=== PATIENT | male | born 1940 | race Asian ===

== ENCOUNTER → 2024-04-19 | Outpatient (CLI) | payer MEDICARE, MEDICAID, SELFPAY | END | disposition home or self-care (01) | PROVIDERS: PCP Physician Assistant; Referring Provider Urology; Visit Provider Urology | DX: N40.1 Benign prostatic hyperplasia with lower urinary tract symptoms (principal) | CPT/HCPCS: 36415; 84153 ==

== ENCOUNTER → 2024-04-19 | Outpatient (BNVA) | payer MEDICARE, MEDICAID, SELFPAY | END | disposition home or self-care (01) | PROVIDERS: PCP Physician Assistant; Referring Provider Physician Assistant; Visit Provider Urology | DX: N40.1 Benign prostatic hyperplasia with lower urinary tract symptoms (principal); N13.8 Other obstructive and reflux uropathy; E10.9 Type 1 diabetes mellitus without complications; I10 Essential (primary) hypertension; I25.10 Atherosclerotic heart disease of native coronary artery without angina pectoris; F17.210 Nicotine dependence, cigarettes, uncomplicated | CPT/HCPCS: 81003; 99212; G0463 ==

== ENCOUNTER → 2024-06-29 | Outpatient (BNVA) | payer MEDICARE, MEDICAID, SELFPAY | END | disposition home or self-care (01) | PROVIDERS: PCP Physician Assistant; Referring Provider Physician Assistant; Visit Provider Urology | DX: N40.1 Benign prostatic hyperplasia with lower urinary tract symptoms (principal); N13.8 Other obstructive and reflux uropathy; E10.9 Type 1 diabetes mellitus without complications | CPT/HCPCS: 76872 ==

== ENCOUNTER 2025-03-08 09:59 | Emergency (ER) | payer MEDICARE, MEDICAID, SELFPAY ==
[2025-03-08 10:11] VITALS: BP 129/69; PULSE 73; RESP 19; TEMP 36.6; O2SAT 97; BMI 22.6
--- NOTE | 2025-03-08 10:23 | PD.EDRME ---
Rapid Medical Screening Exam RME Arrival date/time: 03/08/25 09:59 84-year-old male presents to the emergency department today for complaint of rectal pain. Chief Complaint: General Adult/Misc Complain Vital signs: Vital Signs Temperature 98 F 03/08/25 10:11 Pulse Rate 73 03/08/25 10:11 Respiratory Rate 19 03/08/25 10:11 Blood Pressure 129/69 03/08/25 10:11 Pulse Oximetry (%) 97 03/08/25 10:11 Oxygen Delivery Method Room Air 03/08/25 10:11 Vital signs reviewed by provider: Yes Exam: On exam patient well-appearing does not appear ill or toxic Clinical Impression: Lab work ordered patient be seen in main ER for further evaluation
[2025-03-08 10:54] LABS: Basophils # (Auto) 0.1 Thou/mm3 (0.0-0.2); Basophils % (Auto) 1 % (0-2.5); Eosinophils # (Auto) 0.9 Thou/mm3 (0.0-0.5); Eosinophils % (Auto) 6 % (0-10); Hematocrit 43.1 % (41.0-53.0); Hemoglobin 14.3 g/dL (13.5-16.0); Immature Granulocytes Auto 0.03 Thou/mm3 (0.00-0.00); Lymphocytes # (Auto) 1.8 Thou/mm3 (1.0-4.8); Lymphocytes % (Auto) 13 % (10-50); Mean Corpuscular HGB Conc 33.2 g/dl (31.0-37.0); Mean Corpuscular Hemoglobin 25.0 pg (25.0-35.0); Mean Corpuscular Volume 75 fL (80-100); Monocytes # (Auto) 0.9 Thou/mm3 (0.0-0.8); Monocytes % (Auto) 7 % (0-12); Neutrophils # (Auto) 9.8 Thou/mm3 (1.8-7.7); Neutrophils % (Auto) 73 % (37-80); Nucleated Red Blood Cell # 0.00 Thou/mm3 (0.00-0.00); Nucleated Red Blood Cell % 0 /100 WBC (0); Platelet Count 229 Thou/mm3 (140-440); RDW Standard Deviation 38.6 fL (35.1-43.9); Red Blood Count 5.73 Miln/mm3 (4.50-5.90); White Blood Count 13.4 Thou/mm3 (3.8-10.6)
[2025-03-08 11:12] LABS: Alanine Aminotransferase 16 U/L (10-49); Albumin, Serum 4.5 gm/dL (3.4-4.8); Albumin/Globulin Ratio 1.2 (1.2-2.2); Alkaline Phosphatase 100 U/L (46-116); Anion Gap 12 (7-16); Aspartate Amino Transferase 20 U/L (0-34); BUN/Creatinine Ratio 15 Ratio (12-20); Bilirubin,Total 0.5 mg/dL (0.3-1.2); Blood Urea Nitrogen 21 mg/dL (9-23); Calcium 9.7 mg/dL (8.3-10.6); Calcium (Corrected) 9.7 mg/dL (8.5-10.1); Carbon Dioxide 25.7 mMol/L (20.0-31.0); Chloride 101 mMol/L (98-107); Creatinine (Component) 1.4 mg/dL (0.6-1.3); Estimated Creatinine Clearance 33.6 mL/min (>60); Globulin 3.8 gm/dL (2.3-3.5); Glucose 185 mg/dL (74-106); Lipase 36 U/L (12-53); Osmolality,Calculated 285 (275-295); Potassium 4.0 mMol/L (3.4-5.1); Sodium 139 mMol/L (136-145); Total Protein 8.3 gm/dL (5.7-8.2); eGFR 49 See Note
--- NOTE | 2025-03-08 11:20 | XR_ITS ---
Examination: CT abdomen and pelvis without contrast. Coronal 3-D reconstructions. Sagittal 2-D reconstructions. Date and time of exam: March 08, 2025, 1144 hours INDICATIONS: Lower abdominal pain rectal pain today COMPARISON: September 26, 1999 and CTDI: vol (mGy): 4.85 DLP: (mGycm): 280 Technique: Axial images of the abdomen have been obtained, 3 mm slice thickness Intravenous contrast material has not been administered. Low dose protocols were performed. One or more of the following dose reduction techniques were used; automated exposure control, adjustment of the mA and/or KV according to patient size, use of iterative reconstruction technique. Findings: No focal liver or splenic lesions No gallstones No pancreatic or adrenal mass Mild renal scar formation Aortic calcification no aneurysmal dilatation No pericecal inflammatory change No diverticulitis Normal seminal vesicles Mild prostatomegaly Urinary bladder intact Severe osteopenia, advanced degenerative disc disease L3-L4 Significant rectal wall thickening IMPRESSION: Mild renal scar formation, no hydronephrosis or ureteral calculi No CT findings of bowel obstruction diverticulitis or appendicitis Severe osteopenia, advanced degenerative disc disease L3-L4 Significant rectal wall thickening, differential would include rectal tumor, recommend direct inspection
[2025-03-08 11:54] LABS: Collection Type, Urine Clean Catch
[2025-03-08 12:03] LABS: Bilirubin,Urine Negative (Negative); Blood,Urine Negative (Negative); Clarity,Urine Clear (Clear/Hazy); Color,Urine Yellow (Lt Yel-Yel); Culture Indicated,Urine Not Indicated; Glucose, Urine 4+ (Negative); Ketones,Urine 2+ (Negative); Leukocyte Esterase,Urine Negative (Negative); Nitrite,Urine Negative (Negative); PH,Urine 6.0 (5.0-7.0); Protein,Urine Trace (Neg - Trace); RBC,Urine 5 /hpf (0-3); Specific Gravity,Urine 1.037 (1.001-1.035); Squamous Epithelial Cell,Urine < 1 /hpf (0-5); Urobilinogen,Urine Negative mg/dL (0.0-1.0); WBC,Urine 1 /hpf (0-5)
--- NOTE | 2025-03-08 13:30 | PC.NURSE ---
Pt. here from home to room 9, pt.'s grand daughter is bedside and states pt. started having pain on 02/16/25, pt. states the pain got worse on Friday. Pt. states he has to much pain. Pt. laying on his side. No s/s of distress.
[2025-03-08 13:36] VITALS: BP 144/70; PULSE 61; RESP 18; O2SAT 98
[2025-03-08] MEDS: ONDANSETRON INJ 2 MG/ML INJ 2 ML 4 MG IVP (13:39)
[2025-03-08] MEDS: MORPHINE SULF INJ 4 MG/ML VIAL IVP (13:43)
[2025-03-08] MEDS: PIPER/TAZO 3.375 GM PREMIX 3.375 GM/50 ML BAG IV (13:44)
[2025-03-08] MEDS: SODIUM CHLORIDE 0.9% 1000 ML 1,000 ML 85 ML IV (13:45)
--- NOTE | 2025-03-08 14:13 | EDNOTE_ITS ---
ED General RME/HPI General Chief complaint: Skin/Abscess/Foreign Body Stated complaint: Rectal pain x 4d Time Seen by Provider: 03/08/25 11:11 Arrival date/time: 03/08/25 09:59 CC: Rectal pain HPI progressive increase in severity was noticed on 16 February, 20 days ago, now has become extremely painful and the patient is not able to sit on the right side of his buttocks. Patient denies fever chills no prior history of similar events did not recall scratching his rectum or any other rectal complications. Patient is awake alert in mild discomfort but not in any acute distress. Localized pain is a 6 on a 10 scale when at rest and when sitting on it is a 9 on a 10 scale. RME / HPI RME / HPI narrative: 03/08/25 09:59 84-year-old male presents to the emergency department today for complaint of rectal pain. Exam: On exam patient well-appearing does not appear ill or toxic Impression: Lab work ordered patient be seen in main ER for further evaluation Related Data Home Medications ?Medication ?Instructions ?Recorded ?Confirmed Benazepril Hcl * (LOTENSIN *) 10 mg PO QDAY #0 tabs 06/29/24 insulin glargine 100 unit/mL 10 unit subcut QAM #0 via ls 05/23/15 06/29/24 subcutaneous solution (Lantus U-100 Insulin) tamsulosin 0.4 mg capsule 0.4 mg PO QHS 09/07/2006/29 docusate sodium 100 mg capsule 100 mg PO QDAY PRN Dige stion 09/20/20 06/29/24 (Colace) insulin aspart U-100 100 unit/mL 20 unit subcut QDAY 0 09/20/20 06/29/24 (3 mL) subcutaneous pen (Novolog FlexPen U-100 Insulin aspart) metformin 1,000 mg tablet 1,000 mg PO QDAY 09/20/20 famotidine 20 mg tablet (Pepcid) 20 mg PO QDAY 2 06/29/24 umeclidinium 62.5 mcg-vilanterol 1 inh inhalation QDAY 07/27/21 06/29/24 25 mcg/actuation powdr for inhalation (Anoro Ellipta) atorvastatin 40 mg tablet 40 mg PO QHS 10/02/21 gabapentin 100 mg capsule 100 mg PO QHS 10/02/2106/29 levothyroxine 25 mcg capsule 25 mcg PO QDAY 10/02/21 0 06/29/24 Previous Rx's ?Medication ?Instructions ?Recorded sulfamethoxazole 800 1 tab PO BID 7 days #14 tabs 03/08/25 mg-trimethoprim 160 mg tablet (Bactrim DS) Allergies Allergy/AdvReac Type Severity Reaction Status Date / Time No Known Allergies Allergy Verified 03/08/25 10:05 Review of Systems Review of Systems Narrative Review of Systems: GEN: No fever, no chills, no weight loss EYES: No discharge, no visual changes, no pain HEENT: No ear pain, no congestion, no sore throat PULM: No shortness of breath, no cough, no congestion CV: No chest pain, no dyspnea on exertion, no palpitations GI: No nausea, no vomiting, no diarrhea, no pain, no constipation : No frequency, no urgency, no dysuria MUSC/SKEL: No joint pain, no back pain SKIN: No rash, + rectal pain PSYCH: No hallucinations, no depression HEME/LYMPH: No easy bleeding or bruising tendencies NEURO: No weakness, no headache Past Medical History Past Medical History CARDIAC: Negative Congestive Heart Failure RESPIRATORY: Negative Chronic Obstructive Pulmonary Disease (COPD) GENITOURINARY: Negative Renal Disease ENDOCRINE: Positive Diabetes Mellitus Type 1; Negative Diabetes Mellitus Type 2 OTHER HISTORY: Negative Autoimmune Disease Family History FAMILY HISTORY: Negative Family Cardiac Disorders, Family Cancer, Family Surgery or Family Anesthesia Reaction Social History SMOKING STATUS: Current every day smoker ED Exam Narrative Physical exam: [General: Thin but not emaciated, in mild discomfort but not in any acute distress Head normocephalic HEENT: Within acceptable limits Neck is supple nontender Chest equal chest rise nontender to palpation Respiratory: Clear to auscultation no wheezes crackles or rubs CV: Rate rhythm is regular no murmurs rubs or clicks Abdomen is distended secondary to body habitus soft nontender no masses positive bowel sounds all 4 quadrants Back: No CVA tenderness no spinous process tenderness from cervical spine thoracic and lumbar spine Skin: Rectum: Firm erythematous area with no opening or exudative material starting at the anus and progressing out through on the right side group home through the gluteal cleft. No tenderness on the right gluteal cheek externally. Or tenderness in the left gluteal cheek at all. Otherwise skin is intact no petechiae rash induration ulceration or crepitus Extremities: Moving all extremity against resistance cap refill less than 2 seconds neurosensory intact Neuro: Awake alert oriented x3 Glascow coma 15 no focal deficits] Course Course Course Narrative: Patient's clinical findings CT findings and laboratory results discussed with Dr Ferreira surgeon states the patient can be follow-up in outpatient basis and put on Bactrim or clindamycin. This was discussed with the patient was in agreement with this plan. Will discharge the patient home to follow-up outpatient basis. Quality Measures none Orders Category Date Time Status CT Screening NOW Care 03/08/25 15:28 Completed Saline [Insert IV] NOW Care 03/08/25 12:[address] abdomen pelvis wo con Stat Exams 03/08/25 11:[address] pelvis w con Stat Exams 03/08/25 15:28 Completed CBC Stat Lab 03/08/25 10:37 Completed Comprehensive Metabolic Panel Stat Lab 03/08/25 10:37 Completed Lipase Stat Lab 03/08/25 10:37 Completed UA, C/S IF [Urinalysis, C/S if Indicated] Stat Lab 03/08/25 11:40 Completed Morphine* Inj Med 03/08/25 13:24 Discontinued 4 mg IVP X1 ONE Ondansetron Inj [Zofran Inj] Med 03/08/25 13:26 Discontinued 4 mg IVP X1 ONE Piper/Tazo 3.375 gm Premix [Zosyn] Med 03/08/25 12:07 Discontinued 3.375 gm in 50 ml IV X1 Sodium Chloride 0.9% 1000 ml [Ns] 1,000 ml Med 03/08/25 13:27 Discontinued IV 85 mls/hr Trimethoprim/Sulfa 160/800 Ds [Bactrim Ds] Med 03/08/25 20:03 Discontinued 1 tab PO X1 ONE Vital Signs Vital signs: Vital Signs Temperature 98 F 03/08/25 10:11 Pulse Rate 73 03/08/25 10:11 Respiratory Rate 19 03/08/25 10:11 Blood Pressure 129/69 03/08/25 10:11 Pulse Oximetry (%) 97 03/08/25 10:11 Oxygen Delivery Method Room Air 03/08/25 10:11 Discharge Plan Plan Patient Disposition: HOME (Self Care) Patient condition on transfer: Stable Prescriptions/Referrals Prescriptions/Med Rec: New sulfamethoxazole-trimethoprim [Bactrim DS] 800-160 mg tablet 1 tab PO BID 7 Days Qty: 14 0RF No Action tamsulosin 0.4 mg capsule 0.4 mg PO QHS insulin aspart U-100 [Novolog FlexPen U-100 Insulin] 100 unit/mL (3 mL) insulin pen 20 unit subcut QDAY metformin 1,000 mg tablet 1,000 mg PO QDAY docusate sodium [Colace] 100 mg capsule 100 mg PO QDAY PRN (Reason: Digestion) atorvastatin 40 mg tablet 40 mg PO QHS gabapentin 100 mg capsule 100 mg PO QHS levothyroxine 25 mcg capsule 25 mcg PO QDAY Lantus U-100 Insulin 100 U/ML solution 10 unit Sub-Q QAM Qty: 0 Benazepril Hcl * (LOTENSIN *) 10 MG tablet 10 mg PO QDAY Qty: 0 famotidine [Pepcid] 20 mg Tablet 20 mg PO QDAY Anoro Ellipta 62.5-25 mcg/actuation Blister With Device 1 inh INHALATION QDAY Referrals: Edilberto Ferreira MD [Physician, General Surgery] - In 1 week Maisha Selby PA-C [Primary Care Provider, Family Practice] - In 1 week Problem List Clinical Impression: Abscess, perianal Patient/Caregiver Discharge Instructions Education Materials: ED ABSCESS Camelia-Anal Abx only Additional Instructions: Take the medications as prescribed ibuprofen and Tylenol for pain if there is any worsening of symptoms return to the emergency room meetly for further evaluation. Print Language: Fortunato Stand Alone Forms: Kalee Award Info., Work/School Release, Patient Portal Info Letter PA/SUPERVISOR [employer] Supervising Physician PA/SUPERVISOR [employer] Supervising Physician: Avni Arreaga ENP [facility] Clinical Information Provided by: patient Medical Records reviewed [facility] Meds/Rx considered, not ordered None Labs/Rad/Tests considered, not ordered None Chronic Illness/Social Conditions which may negatively complicate care or outcome(s)-explain: None or not applicable EKG EKG not done Labs Labs: interpreted by [place] Lab(s) Interpretation(s): CBC shows leukocytosis of 13.4 H&H is within acceptable limits, no thrombocytopenia CMP shows no significant electrolyte imbalances other than a glucose of 185. BUN of 21 and creatinine of 1.4. No transaminitis or T. bili elevation. Lipase 36. Urine shows a high specific gravity 4+ glucose 2+ ketones 5 RBCs no with signs of infection. Imaging Imaging interpretation: interpreted by me Imaging Interpretation(s): Noncontrast abdomen pelvis CT shows rectal wall thickening no definitive mass. CT shows a small 2.4 x 2.2 x 2.2 perianal abscess. There is no extension into the surrounding area. Medication Administration(s) none Medication Administration History Discontinued Medications Piperacillin/Tazobactam/Dextrose (Zosyn) 3.375 gm in 50 mls @ 100 mls/hr IV X1 ONE; Protocol Stop: 03/08/25 12:36 Last Infusion: 03/08/25 14:14 Dose: Infused Documented By: Admin: 03/08/25 13:44 Dose: 100 mls/hr Documented By: ED Sodium Chloride (Ns) 1,000 mls @ 85 mls/hr IV .[id number] CASANDRA Stop: 04/07/25 13:26 Last Infusion: 03/08/25 20:23 Dose: 0 mls/hr Documented By: Admin: 03/08/25 13:45 Dose: 85 mls/hr Documented By: ED Morphine Sulfate (Morphine Sulf Inj 4 Mg/Ml Vial) 4 mg IVP X1 ONE Stop: 03/08/25 13:25 Last Admin: 03/08/25 13:43 Dose: 4 mg Documented By: ED Ondansetron HCl (Ondansetron Inj 2 Mg/Ml Inj 2 Ml) 4 mg IVP X1 ONE; Protocol Stop: 03/08/25 13:27 Last Admin: 03/08/25 13:39 Dose: 4 mg Documented By: ED Trimethoprim/Sulfamethoxazole (Trimethoprim/Sulfa 160/800 Ds Tablet) 1 tab PO X1 ONE Stop: 03/08/25 20:04 Last Admin: 03/08/25 20:21 Dose: 1 tab Documented By: SF Diagnosis Differential Diagnosis ED Complaint MDM: Rectal abscess rectal mass proctitis thank you
--- NOTE | 2025-03-08 15:28 | XR_ITS ---
Examination: CT pelvis with intravenous contrast, 2-D sagittal reconstructions. 2-D coronal reconstructions. 3-D reconstructions. Date and time of exam: March 08, 2025, 1819 hours INDICATIONS: Rectal pain 4 days CTDI: vol (mGy): 5.01 DLP: (mGycm): 176 Technique: Multiple 1.25 mm axial sections of the 30 cc Isovue-300 have been obtained. 2-D sagittal and coronal reconstructions have been obtained. 3-D reconstructions have been obtained. Low dose protocols were performed. One or more of the following dose reduction techniques were used; automated exposure control, adjustment of the mA and/or KV according to patient size, use of iterative reconstruction technique. Findings: Perianal abscess, primarily right-sided, 24 x 22 x 23 mm Cellulitis in the buttock region bilaterally Rectal wall thickening axial image 102 No mass in the pelvis urinary bladder intact IMPRESSION: Right-sided perianal abscess 24 x 22 x 23 mm Proctitis
[2025-03-08 16:22] VITALS: BP 114/71; PULSE 60; RESP 14; TEMP 36.9; O2SAT 97
[2025-03-08 17:55] VITALS: BP 141/65; PULSE 60; RESP 16; TEMP 36.8; O2SAT 98
[2025-03-08] MEDS: TRIMETHOPRIM/SULFA 160/800 DS TABLET 1 TAB PO (20:21)
[2025-03-08 20:24] VITALS: BP 137/70; PULSE 79; RESP 16; TEMP 36.7; O2SAT 98
== END 2025-03-08 20:28 | disposition home or self-care (01) ==
PROVIDERS: Nurse Practitioner Primary Care; Emergency Provider Family Medicine; PCP Physician Assistant
DX: K61.0 Anal abscess (principal)
CPT/HCPCS: 36415; 72193; 74176; 80053; 81001; 83690; 85025; 96361; 96365; 96375; 99284; A4649; J2270; J2405; J2543; J7030; Q9967; A9270